=== PATIENT | female | born 1965 | race Caucasian/White ===

== ENCOUNTER 2016-09-20 19:03 | Emergency (ER) | payer OTHER ==
[2016-09-20 19:26] VITALS: BP 151/94
[2016-09-20] MEDS ORDERED: NS 0.9% 1000 ML* 1,000 ML IV ONE (19:53)
--- NOTE | 2016-09-20 20:16 | UC ---
Suzy, DoctorShanita, scribed for Shawanda Norton MD on 09/20/16 at 2004 . General HPI - HPI Summary HPI Summary: 51 year old female arrived to [facility] c/o lightheadedness and tachycardia beginning at 17:50 today. Her lightheadedness was alleviated when bending forward and walking, and has since resolved. She describes the sensation as " not a spinning feeling," and dissimilar to previous syncope episodes. She additionally reports feeling pain beginning in the right thumb and wrist, radiating to right elbow-right upper arm, and right side of the neck to behind the right ear. She denies chest pain, SOB, BEEBE, visual changes, squeezing/ tightness in the chest, or PMHx of migraines. She has FHx of [place] and HTN, but no FHx of CVA. She reports just feeling "generally off" since 09/18/16 when she awoke. Pt states her vit D level is very low and she doesn't take it as much as directed. Last known well time was at night on 09/17. - History of Current Complaint Chief Complaint: UCDizziness Stated Complaint: LIGHTHEADED AND ARM PAIN Time Seen by Provider: 09/20/16 19:29 Hx Obtained From: Patient Onset/Duration: Gradual Onset, Lasting Days, Still Present - pain still present , Resolved - lightheadedness resolved Timing: Constant Onset Severity: Moderate Current Severity: Moderate Pain Intensity: 0 Pain Location at: right neck, upper arm and wrist to thumb Character: sharp Aggravating: nothing Alleviating: nothing Associated Signs & Symptoms: Positive: Other - lightheadedness. Negative: Chest Pain, Dizziness, Headache, Syncope, SOB, Trauma - Allergy/Home Medications Allergies/Adverse Reactions: Allergies Allergy/AdvReac Type Severity Reaction Status Date / Time BEES Allergy ANAPHYLACTI Uncoded 04/08/15 12:45 C Home Medications: Home Medications Cholecalciferol [Vitamin D] 09/20/16 [History] Epinephrine [Epipen 2-Sanjay] 0.3 mg IM 09/20/16 [History] PMH/Surg Hx/FS Hx/Imm Hx Previously Healthy: No - Vit D deficiency Cardiovascular History Of: Denies: Myocardial Infarction Neurological History Of: Denies: CVA - Surgical History Surgical History: Yes Surgery Procedure, Year, and Place: LEFT LEG FACSIOTOMY 2002 [place]. ORIF R ANKLE 10/2013 [facility] [place]. Left lobectomy - Family History Known Family History: Positive: Cardiac Disease - Grandmother of [place], Hypertension, Other - Endometriosis, hysterectomy - Social History Lives: With Family Alcohol Use: Daily Alcohol Amount: varies, 3+ sometimes a day Substance Use Type: Marijuana Smoking Status (MU): Current Some Day Smoker Type: Cigarettes Amount Used/How Often: SOCIAL 5 CIGS/MONTH Have You Smoked in the Last Year: Yes When Did the Patient Quit Smoking/Using Tobacco: 2017 Review of Systems Constitutional: Other - no fever Eyes: Negative Respiratory: Negative Cardiovascular: Other - no chest pain Musculoskeletal: Other: - pain on the right wrist, right arm, right side of the neck/below the right ear Neurological: Other - 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 Negative: Muffled/hoarse voice Neck: Positive: Supple, Nontender, No Lymphadenopathy, Other: - indicated pain post auricular and right lateral neck on right Respiratory: Positive: Lungs clear, Normal breath sounds, No respiratory distress Cardiovascular: Positive: No Murmur, Pulses Normal, Brisk Capillary Refill, Tachycardia Abdomen Description: Positive: Nontender, Soft Musculoskeletal: Positive: Strength Intact, ROM Intact Neurological: Positive: Alert, Muscle Tone Normal, Other: - no focal deficit, CN II-XII intact Psychological Exam: Normal Skin Exam: Normal Course/Dx - Course Course Of Treatment: EKG: SR, nl AVIVCT, axis 5, no acute changes, no prior to compare. - Differential Dx - Multi-Symptom Differential Diagnoses: Cardiac Ischemia, CVA, Metabolic Abnormality Provider Diagnoses: acute vertigo/lightheadedness. right arm pain. elevated BP without dx of HTN. tachycardia - Physician Notifications Discussed Patient Care With: 19:51 - Discussed pt with PHILIP Teran about sending pt to [facility] by Ambulance. She agreed. Discharge - Discharge Plan Condition: Stable Disposition: TRANS HIGHER LVL OF CARE FAC The documentation as recorded by the Doctor mancini Tahera accurately reflects the service I personally performed and the decisions made by me, Shawanda Norton MD.
== END 2016-09-20 20:19 | disposition short-term general hospital (02) ==
LOC: UCEAST 19:03
DX: R42 Dizziness and giddiness (principal); M79.621 Pain in right upper arm; F17.210 Nicotine dependence, cigarettes, uncomplicated; F12.90 Cannabis use, unspecified, uncomplicated; R03.0 Elevated blood-pressure reading, without diagnosis of hypertension
CPT/HCPCS: 99203; G0463

== ENCOUNTER 2016-09-20 20:31 | Emergency (ER) | payer OTHER ==
[2016-09-20 21:36] LABS: Hematocrit 38 % (35-47); Hemoglobin 12.7 g/dl (12.0-16.0); Mean Corpuscular HGB Conc 33 g/dl (31-36); Mean Corpuscular Hemoglobin 32 pg (27-31); Mean Corpuscular Volume 96 fL (80-97); Mean Platelet Volume 8 um3 (7.4-10.4); Red Blood Count 3.96 10^6/ul (4.0-5.4); Red Cell Distribution Width 13 % (10.5-15); White Blood Count 9.2 10^3/ul (3.5-10.8)
[2016-09-20 21:54] LABS: ALT 18 U/L (7-52); AST 16 U/L (13-39); Albumin 4.1 g/dL (3.2-5.2); Alkaline Phosphatase 59 U/L (34-104); Anion Gap 7 mmol/L (2-11); Blood Urea Nitrogen 13 mg/dL (6-24); CO2 Carbon Dioxide 22 mmol/L (22-32); Calcium 9.2 mg/dL (8.6-10.3); Chloride 104 mmol/L (101-111); EGFR African American 124.1 (>60); EGFR Non-African American 96.5 (>60); Globulin 3.1 g/dL (2-4); Glucose 93 mg/dL (70-100); Magnesium 2.1 mg/dL (1.9-2.7); Potassium 3.8 mmol/L (3.5-5.0); Sodium 133 mmol/L (133-145); Total Protein 7.2 g/dL (6.4-8.9)
--- NOTE | 2016-09-20 21:59 | RAD ---
Indication: Dizziness. CT of the brain was performed without IV contrast. Ventricular structures are midline. No midline shift is noted. The extra-axial spaces are unremarkable. There is no evidence of intracranial mass or hemorrhage. No other high or low density lesions are identified. Mastoid air cells and paranasal sinuses are otherwise unremarkable. IMPRESSION: No intracranial mass or hemorrhage is noted.
--- NOTE | 2016-09-20 22:00 | RAD ---
Indication: Dizziness. A single AP view of the chest demonstrates no mediastinal shift. Heart is of normal size and configuration. Lung bills are clear. When compared to previous exam of September 12, 2009 no significant change is noted. IMPRESSION: No active cardiopulmonary disease is noted.
[2016-09-20 22:21] LABS: TSH (Thyroid Stimulating Horm) 0.89 mcIU/mL (0.34-5.60)
[2016-09-21 00:29] LABS: Urine Bilirubin Negative (Negative); Urine Glucose Negative (Negative); Urine Nitrite Negative (Negative)
[2016-09-21] MEDS ORDERED: Ibuprofen TAB* 600 MG PO ONE (00:52)
[2016-09-21] MEDS ORDERED: Cyclobenzaprine TAB* 10 MG PO ONE (00:52)
--- NOTE | 2016-09-21 01:20 | ED ---
Melissa Almonte Matthew, scribed for Brock Floyd on 09/20/16 at 2126 . Dizziness - HPI Summary HPI Summary: A 51 y/o female presents to the ED with dizziness since 17:30. The dizziness last for 3-4 minutes while the patient was at a movie theater. She's also c/o of right arm pain that radiates into the shoulder and the neck for the past few days. Associated symptoms include palpitations. She denies LOC, chest pain, SOB , and abdominal pain. FHx of CAD. She also reports just feeling "generally off" since 09/18/16 - History Of Current Complaint Stated Complaint: SYNCOPE/CONV CARE. Time Seen by Provider: 09/20/16 20:52 Hx Obtained From: Patient Onset/Duration: Resolved Timing: Minutes Severity Initially: Moderate Severity Currently: None Character: Lightheaded Alleviating Factor(s): Other - bending over Associated Signs And Symptoms: Positive: Palpitations, Other: - right arm pain. Negative: Chest Pain - Allergies/Home Medications Allergies/Adverse Reactions: Allergies Allergy/AdvReac Type Severity Reaction Status Date / Time BEES Allergy ANAPHYLACTI Uncoded 04/08/15 12:45 C PMH/Surg Hx/FS Hx/Imm Hx Cardiovascular History: Denies: Hx Myocardial Infarction, Other Cardiovascular Problems/Disorders Respiratory History: Denies: Other Respiratory Problems/Disorders GI History: Denies: Other GI Disorders Musculoskeletal History: Denies: Other Musculoskeletal History Sensory History: Reports: Hx Contacts or Glasses - READING GLASSES Denies: Hx Hearing Aid Opthamlomology History: Reports: Hx Contacts or Glasses - READING GLASSES - Surgical History Surgery Procedure, Year, and Place: LEFT LEG FACSIOTOMY 2002 [place]. ORIF R ANKLE 10/2013 [facility] [place]. Left lobectomy Hx Anesthesia Reactions: No - Family History Known Family History: Positive: Cardiac Disease - Grandmother of [place], Hypertension, Other - Endometriosis, hysterectomy - Social History Alcohol Use: Daily Alcohol Amount: varies, 3+ sometimes a day Substance Use Type: Reports: Marijuana Smoking Status (MU): Current Some Day Smoker Type: Cigarettes Amount Used/How Often: SOCIAL 5 CIGS/MONTH Have You Smoked in the Last Year: Yes Review of Systems Constitutional: Negative Eyes: Negative ENT: Negative Positive: Palpitations. Negative: Chest Pain Respiratory: Negative Negative: Shortness Of Breath Gastrointestinal: Negative Negative: Abdominal Pain Genitourinary: Negative Positive: Myalgia - right arm pain Skin: Negative Neurological: Other - Dizziness Psychological: Normal All Other Systems Reviewed And Are Negative: Yes Physical Exam Triage Information Reviewed: Yes Vital Signs Reviewed: Yes Appearance: Positive: Well-Appearing, No Pain Distress Skin: Positive: Warm, Skin Color Reflects Adequate Perfusion, Dry Head/Face: Positive: Normal Head/Face Inspection Eyes: Positive: EOMI, MAMADOU ENT: Positive: Normal ENT inspection Neck: Positive: Supple, Nontender Respiratory/Lung Sounds: Positive: Clear to Auscultation, Breath Sounds Present Cardiovascular: Positive: RRR, Pulses are Symmetrical in both Upper and Lower Extremities Abdomen Description: Positive: Nontender, Soft Bowel Sounds: Positive: Present Musculoskeletal: Positive: Normal, Strength/ROM Intact Neurological: Positive: Normal, Sensory/Motor Intact, Alert, Oriented to Person Place, Time Psychiatric: Positive: Affect/Mood Appropriate Diagnostics - Laboratory Result Diagrams: 09/20/16 21:25 09/20/16 21:25 Lab Statement: Any lab studies that have been ordered have been reviewed, and results considered in the medical decision making process. - Radiology CXR Xray Interpretation: No Acute Changes - IMPRESSION: No active cardiopulmonary disease is noted. Radiology Interpretation Completed By: Radiologist - CT Brain CT CT Interpretation: No Acute Changes - IMPRESSION: No intracranial mass or hemorrhage is noted. CT Interpretation Completed By: Radiologist - Ultrasound No standard instances Ultrasound Interpretation: No Acute Changes - No DVT Ultrasound Interpretation Completed By: Radiologist - EKG 00:14 Cardiac Rate: NL - 91 bpm EKG Rhythm: Sinus Rhythm EKG Interpretation: No Acute Changes Dizzy Course/Dx - Course Assessment/Plan: A 51 y/o female presents to the ED with dizziness since 17:30. The dizziness last for 3-4 minutes while the patient was at a movie theater. She 's also c/o of right arm pain that radiates into the shoulder and the neck for the past few days. Associated symptoms include palpitations. She denies LOC, chest pain, SOB, and abdominal pain. FHx of CAD. She also reports just feeling "generally off" since 09/18/16. CXR shows no acute disease. Brain CT is negative. US is negative for DVT. EKG shows NSR at 91 bpm. The patient will be discharged home to follow-up with her PCP. - Diagnoses Provider Diagnoses: Near syncope Discharge - Discharge Plan Condition: Stable Disposition: HOME Patient Education Materials: Near Syncope (ED) Referrals: Jason Mendoza MD [Primary Care Provider] - 3 Days Additional Instructions: Please follow-up with your primary care physician. The documentation as recorded by the Melissa mancini Matthew accurately reflects the service I personally performed and the decisions made by , Brock Floyd.
[2016-09-21 01:24] VITALS: BP 138/79
--- NOTE | 2016-09-21 07:47 | RAD ---
INDICATION: Right upper extremity pain. COMPARISON: There are no prior studies available for comparison. TECHNIQUE: Multiple real-time, color flow and Doppler tracings of the right upper extremity were obtained. FINDINGS: The axillary, brachial, basilic and cephalic veins all demonstrate normal compressibility, augmentation with compression and phasic response with respiration. The radial and ulnar arteries demonstrate normal compressibility. The subclavian and internal jugular veins also demonstrate normal color flow imaging and phasic response with respiration. IMPRESSION: NO EVIDENCE FOR DEEP VENOUS THROMBOSIS.
== END 2016-09-21 01:23 | disposition home or self-care (01) ==
LOC: ED 20:31
DX: R55 Syncope and collapse (principal); R00.2 Palpitations; M79.601 Pain in right arm; R42 Dizziness and giddiness; Z72.0 Tobacco use
CPT/HCPCS: 36415; 70450; 71010; 80053; 81003; 83605; 83735; 83880; 84443; 84484; 84702; 85025; 85610; 85730; 93005; 99282

== ENCOUNTER → 2019-01-26 17:24 | Emergency (ER) | payer OTHER ==
[2019-01-26 18:13] LABS: ABS Basophils 0.1 10^3/ul (0-0.2); ABS Eosinophils 0.2 10^3/ul (0-0.6); ABS Lymphocytes 2.1 10^3/ul (1.0-4.8); ABS Monocytes 0.4 10^3/ul (0-0.8); ABS Neutrophils 3.9 10^3/ul (1.5-7.7); Eosinophil % 2.7 %; Hematocrit 39 % (35-47); Hemoglobin 13.4 g/dL (12.0-16.0); Lymphocyte % 31.6 %; Mean Corpuscular HGB Conc 34 g/dL (31-36); Mean Corpuscular Hemoglobin 34 pg (27-31); Mean Corpuscular Volume 99 fL (80-97); Mean Platelet Volume 7.7 fL (7.4-10.4); Platelet Count 255 10^3/uL (150-450); Red Blood Count 3.97 10^6 /uL (3.70-4.87); Red Cell Distribution Width 13 % (10-15); White Blood Count 6.7 10^3/uL (3.5-10.8)
[2019-01-26 18:23] LABS: INR 0.97 (0.82-1.09)
[2019-01-26 18:33] LABS: Albumin 4.4 g/dL (3.2-5.2); Albumin/Globulin Ratio 1.5 (1-3); BUN/Creatinine Ratio 15.4 (8-20); Calcium 9.6 mg/dL (8.6-10.3); EGFR African American 115.8 (>60); EGFR Non-African American 95.7 (>60); Globulin 2.9 g/dL (2-4); Potassium 3.7 mmol/L (3.5-5.0); Total Bilirubin 0.4 mg/dL (0.2-1.0); Total Protein 7.3 g/dL (6.4-8.9)
--- NOTE | 2019-01-26 19:34 | ED ---
Complex/Multi-Sys Presentation - HPI Summary HPI Summary: This patient is a 53 year old F presenting to [facility] accompanied by a male unit leader with a chief complaint of feeling "off, odd, and weird" since today. Pt came into the ED today because she thought she was having a NE. Pt states she had similar symptoms 2 years ago and her doctor told her it was compression in her cervical vertebrae pinching a nerve. Pt denies near syncopal episodes. Pt does not use any medications. She notes she feels fine now. She thinks she may have Lyme disease from many previous tick bites and has an appointment with her PCP next week for it. The patient rates the pain 0/10 in severity. Symptoms aggravated by nothing. Symptoms alleviated by nothing. - History Of Current Complaint Chief Complaint: EDGeneral Time Seen by Provider: 01/26/19 19:22 Hx Obtained From: Patient, Other: - male unit leader Onset/Duration: Sudden Onset, Lasting Days - since today, Resolved Timing: Constant Severity Currently: None Severity Initially: Mild Aggravating Factor(s): nothing Alleviating Factor(s): nothing Associated Signs And Symptoms: Positive: Other - positive - feels "off, odd, and weird". Negative: Syncope - Allergies/Home Medications Allergies/Adverse Reactions: Allergies Allergy/AdvReac Type Severity Reaction Status Date / Time BEES Allergy ANAPHYLACTI Uncoded 04/08/15 12:45 C Home Medications: Home Medications Cholecalciferol (Vitamin D3) [D 1000] 1,000 unit PO DAILY 01/26/19 [History Confirmed 01/26/19] PMH/Surg Hx/FS Hx/Imm Hx Previously Healthy: No Cardiovascular History: Denies: Hx Myocardial Infarction, Other Cardiovascular Problems/Disorders Respiratory History: Denies: Other Respiratory Problems/Disorders GI History: Denies: Other GI Disorders Musculoskeletal History: Denies: Other Musculoskeletal History Sensory History: Reports: Hx Contacts or Glasses - READING GLASSES Denies: Hx Hearing Aid Opthamlomology History: Reports: Hx Contacts or Glasses - READING GLASSES EENT History: Denies: Hx Deafness, Hx Hearing Problem - Surgical History Surgical History: Yes Surgery Procedure, Year, and Place: LEFT LEG FACSIOTOMY 2002 [place]. ORIF R ANKLE 10/2013 [facility]. Left lobectomy Hx Anesthesia Reactions: No Infectious Disease History: No Infectious Disease History: Denies: Traveled Outside the [place] in Last 30 Days - Family History Known Family History: Positive: Cardiac Disease - Grandmother of [place], Hypertension, Other - Endometriosis, hysterectomy - Social History Alcohol Use: Daily Alcohol Amount: varies, 3+ sometimes a day Hx Substance Use: Yes Substance Use Type: Reports: Marijuana Hx Tobacco Use: Yes Smoking Status (MU): Current Some Day Smoker Type: Cigarettes Amount Used/How Often: SOCIAL 5 CIGS/MONTH Have You Smoked in the Last Year: Yes Review of Systems Constitutional: Other - positive - felt "off, odd, and weird" but now feels normal Negative: Fever Negative: Syncope All Other Systems Reviewed And Are Negative: Yes Physical Exam - Summary Physical Exam Summary: VITAL SIGNS: Reviewed. GENERAL: Patient is a well-developed and nourished FEMALE who is lying comfortable in the stretcher. Patient is not in any acute respiratory distress. HEAD AND FACE: No signs of trauma. No ecchymosis, hematomas or skull depressions. No sinus tenderness. EYES: PERRLA, EOMI x 2, No injected conjunctiva, no nystagmus. EARS: Hearing grossly intact. Ear canals and tympanic membranes are within normal limits. MOUTH: Oropharynx within normal limits. NECK: Supple, trachea is midline, no adenopathy, no JVD, no carotid bruit, no c- spine tenderness, neck with full ROM CHEST: Symmetric, no tenderness at palpation LUNGS: Clear to auscultation bilaterally. No wheezing or crackles. CVS: Regular rate and rhythm, S1 and S2 present, no murmurs or gallops appreciated. ABDOMEN: Soft, non-tender. No signs of distention. No rebound no guarding, and no masses palpated. Bowel sounds are normal. EXTREMITIES: FROM in all major joints, no edema, no cyanosis or clubbing. NEURO: Alert and oriented x 3. No acute neurological deficits. Speech is normal and follows commands. SKIN: Dry and warm Triage Information Reviewed: Yes Vital Signs On Initial Exam: Initial Vitals Temp Pulse Resp BP Pulse Ox 97.3 F 95 20 157/87 100 01/26/19 17:31 18 17:31 01/26/19 17:31 01/26/19 17:31 01/26/19 17:31 Vital Signs Reviewed: Yes Diagnostics - Vital Signs Vital Signs Temp Pulse Resp BP Pulse Ox 01/26/19 17:31 97.3 F 95 20 157/87 100 - Laboratory Lab Results: Lab Results 01/26/19 01/26/19 01/26/19 Range/Units 18:03 18:03 18:03 WBC 6.7 (3.5-10.8) 10^3/uL RBC 3.97 (3.70-4.87) 10^6 /uL Hgb 13.4 (12.0-16.0) g/dL Hct 39 (35-47) % MCV 99 H (80-97) fL MCH 34 H (27-31) pg MCHC 34 (31-36) g/dL RDW 13 (10-15) % Plt Count 255 (150-450) 10^3/uL MPV 7.7 (7.4-10.4) fL Neut % (Auto) 58.1 % Lymph % (Auto) 31.6 % Woodruff % (Auto) 6.4 % Eos % (Auto) 2.7 % Baso % (Auto) 1.2 % Absolute Neuts (auto) 3.9 (1.5-7.7) 10^3/ul Absolute Lymphs (auto) 2.1 (1.0-4.8) 10^3/ul Absolute Monos (auto) 0.4 (0-0.8) 10^3/ul Absolute Eos (auto) 0.2 (0-0.6) 10^3/ul Absolute Basos (auto) 0.1 (0-0.2) 10^3/ul Absolute Nucleated RBC 0.0 10^3/ul Nucleated RBC % 0.0 INR (Anticoag Therapy) 0.97 (0.82-1.09) Sodium 140 (135-145) mmol/L Potassium 3.7 (3.5-5.0) mmol/L Chloride 106 (101-111) mmol/L Carbon Dioxide 26 (22-32) mmol/L Anion Gap 8 (2-11) mmol/L BUN 10 (6-24) mg/dL Creatinine 0.65 (0.51-0.95) mg/dL Est GFR ( Amer) 115.8 (>60) Est GFR (Non-Af Amer) 95.7 (>60) BUN/Creatinine Ratio 15.4 (8-20) Glucose 94 (70-100) mg/dL Calcium 9.6 (8.6-10.3) mg/dL Total Bilirubin 0.40 (0.2-1.0) mg/dL AST 23 (13-39) U/L ALT 26 (7-52) U/L Alkaline Phosphatase 69 (34-104) U/L Troponin I 0.00 (<0.04) ng/mL Total Protein 7.3 (6.4-8.9) g/dL Albumin 4.4 (3.2-5.2) g/dL Globulin 2.9 (2-4) g/dL Albumin/Globulin Ratio 1.5 (1-3) Result Diagrams: 01/26/19 18:03 01/26/19 18:03 Lab Statement: Any lab studies that have been ordered have been reviewed, and results considered in the medical decision making process. Complex Multi-Symp Course/Dx Course Of Treatment: This patient is a 53 year old F presenting to [facility] accompanied by a male unit leader with a chief complaint of feeling "off, odd, and weird" since today. Pt came into the ED today because she thought she was having a NE. Pt states she had similar symptoms 2 years ago and her doctor told her it was compression in her cervical vertebrae pinching a nerve. Pt denies near syncopal episodes. Pt does not use any medications. She notes she feels fine now. She thinks she may have Lyme disease from many previous tick bites and has an appointment with her PCP next week for it. The patient rates the pain 0/10 in severity. Symptoms aggravated by nothing. Symptoms alleviated by nothing. Physical exam shows no remarkable findings. Lab results show MCV 99, MCH 34. Dx is numbness. Pt is agreeable to discharge. Pt was told to follow up with her primary care provider within 1-2 days and to return to the ED for any new or worsening symptoms. - Diagnoses Provider Diagnoses: Numbness Is Visit Related: No Discharge - Sign-Out/Discharge Documenting (check all that apply): Patient Departure - discharge Patient Received Moderate/Deep Sedation with Procedure: No - Discharge Plan Condition: Stable Disposition: HOME Referrals: Jason Mendoza MD [Primary Care Provider] - 1 Day Additional Instructions: Follow up with your primary care provider within 1-2 days. Return to the ED for any new or worsening symptoms. - Attestation Statements Document Initiated by Scribe: Yes Documenting Scribe: Yandel Ramírez Provider For Whom Scribe is Documenting (Include Credential): Dr. Peyton Landa MD Scribe Attestation: I, Yandel Ramírez, scribed for Dr. Peyton Landa MD on 01/26/19 at 1936. Status of Scribe Document: Ready
[2019-01-26 19:47] VITALS: BP 137/100
== END | disposition home or self-care (01) ==
LOC: ED 17:24
DX: R20.0 Anesthesia of skin (principal); F17.210 Nicotine dependence, cigarettes, uncomplicated
CPT/HCPCS: 36415; 80053; 84484; 85025; 85610; 93005; 99282